=== PATIENT | male | born 1980 | race Hispanic/Latino ===

== ENCOUNTER 2016-10-01 22:26 | Emergency (ER) ==
[2016-10-01] MEDS ORDERED: XYLOCAINE 1% INJ ONE (22:53)
--- NOTE | 2016-10-01 22:53 | PROVIDER DOCUMENTATION ---
HPI-Musculoskeletal Pain/Inj - GENERAL Source: patient - HX OF PRESENT ILLNESS-MUSKULOSKELTAL Quality of Pain: reports: cramping, dull Severity in ED: moderate Onset/Duration: 1/2 hour ago Timing: still present Modifying Factors: improves with: immobilization, rest. worse with: exercise, massage, movement, palpation Any recent injury?: No Locality of Occurance: Home - UPPER EXTREMITY PAIN/INJURY Extremities Pain Location: shoulder: left Context / Method of Injury: reports: other (popped out of place) Associated Symptoms: reports: sensory/motor loss. denies: muscle spasms, numbness in upper ext, tingling in upper ext, weakness in upper ext <Osiel Montano - Last Filed: 10/01/16 23:36> <Pieter Thompson - Last Filed: 10/01/16 23:42> - GENERAL Chief Complaint: Shoulder Pain Stated Complaint: LT SHOULDER PAIN/POSS DISLOCATION Time Seen by Provider: 10/01/16 23:00 - HX OF PRESENT ILLNESS-MUSKULOSKELTAL Nature of Presenting Problem: Pt is a 36 yom who presents to ER with CC of L shoulder pain. 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 X-ray confirms shoulder is dislocated. (Osiel Montano) Review of Systems - Adult - REVIEW OF SYSTEMS - ADULT Constitutional: denies: chills, fever, fatique, night sweats Eyes: reports: no symptoms reported Ears, Nose, Mouth & Throat: reports: no symptoms reported Cardiovascular: reports: no symptoms reported Respiratory: reports: no symptoms reported Gastrointestinal: reports: no symptoms reported Genitourinary: reports: no symptoms reported Musculoskeletal: reports: joint pain (L shoulder), muscle weakness, other (L shoulder dislocated). denies: bone pain, back pain, frequent leg cramps, joint swelling, muscle aches, neck pain Integumentary: denies: hives, hair loss, itching, mole changes, nail changes, rash, skin sores/ulcer, skin thickening Neurological: reports: no symptoms reported Psychiatric: reports: no symptoms reported Endocrine: reports: no symptoms reported Hematologic/Lymphatic: reports: no symptoms reported Allergic/Immunologic: reports: no symptoms reported All Other Systems: Reviewed and Negative <Osiel Montano - Last Filed: 10/01/16 23:36> Past History - Adult - PAST MEDICAL HISTORY-ADULT Review of Records: reports: Nursing Assessment Review, Medications Reviewed - IMMUNIZATION STATUS Childhood Immunizations: See Nurse Assessment Flu Vaccine: See Nurse Assessment <MontanoOsiel - Last Filed: 10/01/16 23:36> Physical Exam-Injury Related - Physical Exam-Injury Related Initial Vital Signs Reviewed: Yes General Appearance: appears well, alert, mild distress. negative: anxious, lethargic, slow to respond Neck: non-tender, full range of motion, supple. negative: C-spine tenderness, decresed ROM, limited range of motion, lymphadenopathy Back Exam: no CVA tenderness, no vertebral tenderness. negative: CVA tenderness , decreased range of motion, muscle spasm, swelling, vertebral tenderness Extremity: deformity, tenderness, other (decreased ROM in LUE). negative: normal range of motion, non-tender, normal gait, erythema, inflammation, swelling Integumentary: normal color, warm/dry, blanching. negative: erythema, swelling , tenderness, warm, contusion(s) Neurologic: grossly normal, no motor/sensory deficits Psych/Mental Status: normal mood/affect, normal thought content, normal thought process, oriented x 3 <Osiel Montano - Last Filed: 10/01/16 23:36> Progress - XRAY 1 XRAY: Left XRAY Study: Shoulder Impression: See EMR Report XRAY Interpretation: Dislocated 2 XRAY: Left XRAY Study: Shoulder Impression: See EMR Report XRAY Interpretation: Reduction was successful; Humerus is in socket <Osiel Montano - Last Filed: 10/01/16 23:36> <Pieter Thompson - Last Filed: 10/01/16 23:42> - PLAN OF CARE/RESULTS Progress/Plan/Lab Results: Vital Signs - 24 hr 10/01/16 22:30 Temperature 97.9 F Pulse Rate 121 H Respiratory 18 Rate Blood Pressure 134/71 O2 Sat by Pulse 99 Oximetry Orders Category Date Time Status SHOULDER-LEFT [RAD] Stat Exams 10/01/16 22:34 Taken TRAUMA SHOULDER LEFT [RAD] Stat Exams 10/01/16 23:28 Ordered Lidocaine 1% [Xylocaine 1%] Med 10/01/16 22:54 Discontinued 20 ml .ROUTE .STK-MED ONE Lidocaine 1% [Xylocaine 1%] Med 10/01/16 22:53 Discontinued 20 ml INJ NOW ONE (Osiel Montano) Procedures - DISLOCATION REDUCTION Left Shoulder Time-Out Verification Completed?: Yes Pre-Procedure Neurovascular Exam: Intact Conscious Sedation: No (20cc of 1% litocaine injected into L shoulder joint) Post Procedure Neurovascular Exam: Intact Post Reduction Film: Deformity Reduced Procedure Comment: 20cc of 1% chio injected into L shoulder joint; Reduction confirmed w/Xray <Osiel Montano - Last Filed: 10/01/16 23:36> Departure <Osiel Montano - Last Filed: 10/01/16 23:36> - Departure Time of Disposition Order: 23:40 Certified Medical Emergency: Emergent <Pieter Thompson - Last Filed: 10/01/16 23:42> - Departure DIAGNOSIS: Dislocation, shoulder, anterior Qualifiers: Encounter type: initial encounter Laterality: left Qualified Code(s): S43.015A - Anterior dislocation of left humerus, initial encounter Disposition: HOME 01 Condition: Good Additional Instructions: call Dr Phillip to arrange a follow up visit. Wear your shoulder immobilizer until you see the specialist ED Follow Up Instructions: You have been treated by a care provider in the Emergency Department. These instructions are being provided to you so you can have an understanding of how to care for yourself upon discharge. Upon discharge from the Emergency Department, you are responsible for making arrangements for follow-up care by a physician of your choice. Take all prescribed medications as directed. Return to the Emergency Department immediately for any new or worsening symptoms. You may call the Physician Referral phone number at [phone] to obtain a list of Physicians who are taking new patients. Prescriptions: Ibuprofen [Motrin] 800 mg PO Q8H PRN PRN #30 tablet PRN Reason: Pain Hydrocodone/Acetaminophen [[place] 5-325 Tablet] 1 each PO Q4-6H PRN PRN #12 tablet PRN Reason: Pain Referrals: None,PCP [Primary Care Provider] - Attestation - Scribe Verification/Attestation Scribe:: Osiel Montano Acting as Scribe for:: Pieter Thompson Scribe documention review:: This chart was documented by a scribe and accurately reflects the service the provider performed and the decisions made by the provider. <Osiel Montano - Last Filed: 10/01/16 23:36> Physician Attestation
[2016-10-01] MEDS ORDERED: XYLOCAINE 1% ONE (22:54)
[2016-10-01] MEDS ORDERED: NORCO-7.5 PO ONE (23:37)
[2016-10-02 00:01] VITALS: BP 128/76
--- NOTE | 2016-10-02 07:41 | Diag Imaging Result Document ---
PROCEDURE NAME: TRAUMA SHOULDER LEFT - 10/01/2016 X-RAY LEFT SHOULDER 2 VIEWS, 10/01/2016 AT 2335 HOURS: COMPARISON: 2244 hours. FINDINGS: There has been reduction in the anterior shoulder dislocation. There is a Hill-Sachs deformity of the humeral head which is presumably acute. IMPRESSION: Reduction of the shoulder dislocation.
--- NOTE | 2016-10-02 08:34 | Diag Imaging Result Document ---
PROCEDURE NAME: SHOULDER-LEFT - 10/01/2016 LEFT SHOULDER, TWO VIEWS: FINDINGS: The humeral head is dislocated inferiorly and anteriorly. No fracture. No separation at the acromioclavicular joint. IMPRESSION: Dislocated humerus.
== END 2016-10-02 00:01 | disposition home or self-care (01) ==
LOC: ED 22:26
DX: S43.015A Anterior dislocation of left humerus, initial encounter (principal); M25.512 Pain in left shoulder; M62.81 Muscle weakness (generalized); M21.922 Unspecified acquired deformity of left upper arm; X58.XXXA Exposure to other specified factors, initial encounter